=== PATIENT | male | born 1960 | race African-American/Black ===

== ENCOUNTER → 2017-02-28 | Outpatient (CLI) | payer OTHER ==
[~2017-02-28] MED LIST: ASCORBIC ACID250 M1 PO; BENADRYL25 MG PO; CLARITHROMYCIN500 MG PO; FLAGYL PO; LORTAB 5-325 M1 EACH PO; NO MEDICATIONS; PRILOSEC40 MG PO
--- NOTE | ~2017-02-28 | CR184 ---
[facility] A Service of [facility] & [facility] RADIOLOGY TEXT RESULTS PATIENT: OSNNY CALL LOCATION: [facility] : 62 UNIT #: [id number] AGE: [address]: CLIFFORD MUÑOZ MD SEX: M ORDER DR: [id number] [place], [place] [address] [id number] O MR#: [id number] Acc #: [id number] NAME: SONNY CALL : 1960 SEX: M STUDY DATE/TIME: 02/28/2017 9:21 UNIT: [facility] ROOM: STUDY DESCRIPTION: CR Lumbar Spine Min 4 Views Attending Physician: Clifford Muñoz M.D. Referring Physician: Clifford Muñoz M.D. Ordering Physician: Clifford Muñoz M.D. Primary Care Physician: Clifford Muñoz M.D. MEDICAL IMAGING REPORT This report is preliminary unless electronic signature is present EXAM Lumbar spine series 3 views 02/28/2017 HISTORY Mid-to-low back pain for 6-7 years worsening recently. FINDINGS There is discogenic change including mild levoscoliosis but alignment is otherwise normal. There is no fracture or acute abnormality. Dictated by... Chan Wang M.D. THIS IS AN ELECTRONICALLY VERIFIED REPORT Chan Wang M.D. at 02/28/2017 2:13 PM RONAL/jonah TD: 02/28/2017 12:56 JOB #: [id number] MEDICAL IMAGING REPORT Page 1 of 1 COPY
--- NOTE | ~2017-02-28 | US5 ---
[facility] A Service of [facility] RADIOLOGY TEXT RESULTS PATIENT: SONNY CALL LOCATION: [facility] : 62 UNIT #: [id number] AGE: [address]: CLIFFORD MUÑOZ MD SEX: M ORDER DR: [id number] [facility]. [place], [place] [address] [id number] O MR#: [id number] Acc #: [id number] NAME: SONNY CALL : 1960 SEX: M STUDY DATE/TIME: 02/28/2017 10:09 UNIT: [facility] ROOM: STUDY DESCRIPTION: US Abdominal Complete Attending Physician: Clifford Muñoz M.D. Referring Physician: Clifford Muñoz M.D. Ordering Physician: Clifford Muñoz M.D. Primary Care Physician: Clifford Muñoz M.D. MEDICAL IMAGING REPORT This report is preliminary unless electronic signature is present EXAM Abdominal ultrasound complete 02/28/2017 INDICATIONS Elevated liver enzymes in a 57-year-old male. TECHNIQUE Sonographic imaging of the abdomen was performed. COMPARISON STUDIES No comparisons. FINDINGS The segmentally visualized aorta and IVC are unremarkable. Visualized pancreas unremarkable. Survey images of the liver demonstrate no focal mass, ascites or intrahepatic ductal dilatation. Echogenicity of the liver is mildly increased compared to the right kidney which may reflect mild fatty infiltration. The gallbladder is sonographically unremarkable. Liver measures 13 cm long axis. No intra- or extrahepatic biliary ductal dilatation. Extrahepatic common bile duct measures 5 mm. The kidneys demonstrate no shadowing stone on either side. No hydronephrosis. The right measures 10.4 cm long axis and the left measures 9.9 cm. The spleen measures 8 cm long axis. IMPRESSION 1. Negative abdominal ultrasound. Dictated by... Uday Cordon M.D. THIS IS AN ELECTRONICALLY VERIFIED REPORT Uday Cordon M.D. at 03/03/2017 2:08 PM [facility] A Service of [facility] RADIOLOGY TEXT RESULTS PATIENT: [facility]NY [id number] [birth year] UNIT #: [id number] AGE: [address]: CLIFFORD MUÑOZ MD SEX: M ORDER DR: KOKO/leanna TD: 02/28/2017 19:25 JOB #: [id number] MEDICAL IMAGING REPORT Page 1 of 1 COPY
--- NOTE | ~2017-02-28 | CR243 ---
[facility] A Service of [facility] & [facility] RADIOLOGY TEXT RESULTS PATIENT: SONNY CALL LOCATION: [facility] : 62 UNIT #: [id number] AGE: [address]: CLIFFORD MUÑOZ MD SEX: M ORDER DR: [id number] [place], [place] [address] [id number] O MR#: [id number] Acc #: [id number] NAME: SONNY CALL : 1960 SEX: M STUDY DATE/TIME: 02/28/2017 9:27 UNIT: [facility] ROOM: STUDY DESCRIPTION: CR Thoracic Spine 3 Views Attending Physician: Clifford Muñoz M.D. Referring Physician: Clifford Muñoz M.D. Ordering Physician: Clifford Muñoz M.D. Primary Care Physician: Clifford Muñoz M.D. MEDICAL IMAGING REPORT This report is preliminary unless electronic signature is present EXAM Thoracic spine 3 views 02/28/2017 HISTORY Mid-to-low back pain for 6-7 years worsening recently. FINDINGS Alignment is normal. There is no fracture or bone destruction. IMPRESSION Normal thoracic spine. Dictated by... Chan Wang M.D. THIS IS AN ELECTRONICALLY VERIFIED REPORT Chan Wang M.D. at 02/28/2017 2:13 PM RONAL/jonah TD: 02/28/2017 12:58 JOB #: [id number] MEDICAL IMAGING REPORT Page 1 of 1 COPY
== END | disposition home or self-care (01) ==
LOC: CGUS 08:56
DX: M54.9 Dorsalgia, unspecified (principal); R79.89 Other specified abnormal findings of blood chemistry
CPT/HCPCS: 72072; 72110; 76700